=== PATIENT | male | born 1930 | race Two or more races ===

== ENCOUNTER 2017-11-10 12:01 | Inpatient (IN) | payer OTHER ==
[~2017-11-10] VITALS: Ht 167.6 cm; Wt 52.2 kg
[~2017-11-10 12:01] MED LIST: CLOPIDOGREL BIS75 MG; DONEPEZIL HCL10 MG; METFORMIN HCL750 MG; NAMENDA XR28 MG; QUETIAPINE FUM200 MG
== END 2017-11-17 06:05 | disposition expired | DRG 871 ==
LOC: ER 12:01 → ICU-2 11-11 12:45 → ICU 11-13 04:37
PROC: 4A033R1 Measurement of Arterial Saturation, Peripheral, Percutaneous Approach (ICD-10-PCS; 2017-11-11)
PROC: 3E0F7GC Introduction of Other Therapeutic Substance into Respiratory Tract, Via Natural or Artificial Opening (ICD-10-PCS; 2017-11-11)
PROC: BT43ZZZ Ultrasonography of Bilateral Kidneys (ICD-10-PCS; 2017-11-11)
PROC: 5A09557 Assistance with Respiratory Ventilation, Greater than 96 Consecutive Hours, Continuous Positive Airway Pressure (ICD-10-PCS; 2017-11-11)
PROC: B246ZZZ Ultrasonography of Right and Left Heart (ICD-10-PCS; 2017-11-12)
PROC: 30233N1 Transfusion of Nonautologous Red Blood Cells into Peripheral Vein, Percutaneous Approach (ICD-10-PCS; 2017-11-12)
PROC: 0W9G3ZX Drainage of Peritoneal Cavity, Percutaneous Approach, Diagnostic (ICD-10-PCS; principal; 2017-11-14)
PROC: BB24ZZZ Computerized Tomography (CT Scan) of Bilateral Lungs (ICD-10-PCS; 2017-11-15)
DX: A41.9 Sepsis, unspecified organism (principal); J96.02 Acute respiratory failure with hypercapnia; J69.0 Pneumonitis due to inhalation of food and vomit; I21.4 Non-ST elevation (NSTEMI) myocardial infarction; I50.33 Acute on chronic diastolic (congestive) heart failure; N17.8 Other acute kidney failure; R18.8 Other ascites; K92.2 Gastrointestinal hemorrhage, unspecified; J44.1 Chronic obstructive pulmonary disease with (acute) exacerbation; B37.0 Candidal stomatitis; R65.20 Severe sepsis without septic shock; R33.8 Other retention of urine; K59.09 Other constipation; K74.69 Other cirrhosis of liver; G30.8 Other Alzheimer's disease; F02.80 Dementia in other diseases classified elsewhere, unspecified severity, without behavioral disturbance, psychotic disturbance, mood disturbance, and anxiety; D50.0 Iron deficiency anemia secondary to blood loss (chronic); D63.8 Anemia in other chronic diseases classified elsewhere; I11.0 Hypertensive heart disease with heart failure; I46.8 Cardiac arrest due to other underlying condition; L89.320 Pressure ulcer of left buttock, unstageable; Z78.1 Physical restraint status